=== PATIENT | male | born 1970 | race African-American/Black ===

== ENCOUNTER 2018-02-20 12:27 | Emergency (ER) | payer OTHER ==
[~2018-02-20] VITALS: Ht 170.2 cm; Wt 81.6 kg
[2018-02-20] MEDS ORDERED: IV NORMAL SALINE 1,000ML 1,000 ML IV ONE (13:00)
[2018-02-20 13:05] LABS: BASO % 1 % (0-3); EOS % 1 % (0-3); HEMATOCRIT 39.4 % (39.0-53.0); HEMOGLOBIN 13.9 g/dL (13.0-17.5); LYMPH % 25 % (24-48); MEAN CORPUSCULAR HEMOGLOBIN 30 pg (25-35); MEAN CORPUSCULAR HGB CONC 35 g/dL (31-37); MEAN CORPUSCULAR VOLUME 85 fL (79-100); MONO # 0.5 x10^3/uL (0.0-1.1); MONO % 12 % (0-9); NEUT # 2.4 x10^3uL (1.8-7.7); NEUT % 61 % (31-73); PLATELET COUNT 285 x10^3/uL (140-400); RED BLOOD COUNT 4.63 x10^6/uL (4.30-5.70); RED CELL DISTRIBUTION WIDTH 11.9 % (11.5-14.5); WHITE BLOOD COUNT 3.9 x10^3/uL (4.0-11.0)
--- NOTE | 2018-02-20 13:12 | PHYS DOC ---
Adult General Chief Complaint Chief Complaint: BACK INJURY HPI HPI 47-year-old male with a history of diabetes presents with several day history of productive cough. He's had yellow sputum. He also states he has had some body aches and sweats. He has been working out in the heat and feels as if he may be dehydrated. He is also out of his diabetic medication. He denies any hemoptysis.[] Review of Systems Review of Systems Constitutional: Denies fever or chills [] Eyes: Denies change in visual acuity, redness, or eye pain [] HENT: Denies nasal congestion or sore throat [] Respiratory: Denies cough or shortness of breath [] Cardiovascular: No additional information not addressed in HPI [] GI: Denies abdominal pain, nausea, vomiting, bloody stools or diarrhea [] : Denies dysuria or hematuria [] Musculoskeletal: Denies back pain or joint pain [] Integument: Denies rash or skin lesions [] Neurologic: Denies headache, focal weakness or sensory changes [] Endocrine: Denies polyuria or polydipsia [] All other systems were reviewed and found to be within normal limits, except as documented in this note. Current Medications Current Medications Current Medications Medications (Trade) Dose Ordered Sig/Jonathan Start Time Stop Time Status Last Admin Dose Admin Ketorolac Tromethamine (Toradol) 30 mg 1X ONCE 02/20/18 13:15 02/20/18 13:16 Sodium Chloride 1,000 ml @ 1,000 mls/hr 1X ONCE 02/20/18 13:00 02/20/18 13:59 Allergies Allergies Allergies Coded Allergies Type Severity Reaction Last Updated Verified aspirin Allergy Intermediate gi problems 02/20/18 Yes Physical Exam Physical Exam Constitutional: Well developed, well nourished, no acute distress, non-toxic appearance. [] HENT: Normocephalic, atraumatic, bilateral external ears normal, oropharynx moist, no oral exudates, nose normal. [] Eyes: PERRLA, EOMI, conjunctiva normal, no discharge. [] Neck: Normal range of motion, no tenderness, supple, no stridor. [] Cardiovascular:Heart rate regular rhythm, no murmur [] Lungs & Thorax: Bilateral breath sounds clear to auscultation [] Abdomen: Bowel sounds normal, soft, no tenderness, no masses, no pulsatile masses. [] Skin: Warm, dry, no erythema, no rash. [] Back: No tenderness, no CVA tenderness. [] Extremities: No tenderness, no cyanosis, no clubbing, ROM intact, no edema. [] Neurologic: Alert and oriented X 3, normal motor function, normal sensory function, no focal deficits noted. [] Psychologic: Affect normal, judgement normal, mood normal. [] Current Patient Data Lab Results Laboratory Tests Test 02/20/18 12:54 White Blood Count 3.9 x10^3/uL (4.0-11.0) L Red Blood Count 4.63 x10^6/uL (4.30-5.70) Hemoglobin 13.9 g/dL (13.0-17.5) Hematocrit 39.4 % (39.0-53.0) Mean Corpuscular Volume 85 fL (79-100) Mean Corpuscular Hemoglobin 30 pg (25-35) Mean Corpuscular Hemoglobin Concent 35 g/dL (31-37) Red Cell Distribution Width 11.9 % (11.5-14.5) Platelet Count 285 x10^3/uL (140-400) Neutrophils (%) (Auto) 61 % (31-73) Lymphocytes (%) (Auto) 25 % (24-48) Monocytes (%) (Auto) 12 % (0-9) H Eosinophils (%) (Auto) 1 % (0-3) Basophils (%) (Auto) 1 % (0-3) Neutrophils # (Auto) 2.4 x10^3uL (1.8-7.7) Lymphocytes # (Auto) 1.0 x10^3/uL (1.0-4.8) Monocytes # (Auto) 0.5 x10^3/uL (0.0-1.1) Eosinophils # (Auto) 0.0 x10^3/uL (0.0-0.7) Basophils # (Auto) 0.0 x10^3/uL (0.0-0.2) EKG EKG EKG: Sinus rhythm right bundle branch block rate of 86[] Radiology/Procedures Radiology/Procedures [] Impressions: Chest x-ray: Negative exam as interpreted by me Course & Med Decision Making Course & Med Decision Making Pertinent Labs and Imaging studies reviewed. (See chart for details) [ED course: Evaluation reveals a 47-year-old male who is medically noncompliant. He states he's not been taking his insulin or any other medications for that matter. I informed him that he had several abnormal laboratory studies including a low sodium and an elevated creatinine indicating that he was having complications related to his diabetes. I informed the patient that he would need to follow closely with primary care physician in the very near future to take better care of himself. I offered him admission today to the hospital he refused. I will prescribe him his Lantus.] Dragon Disclaimer Dragon Disclaimer This electronic medical record was generated, in whole or in part, using a voice recognition dictation system. Departure Departure: Impression: Primary Impression: Bronchitis Additional Impressions: Back pain Hyponatremia Hyperglycemia Renal insufficiency Referrals: PCP,MARTA (PCP) MANSI CHAVEZ MD Patient Instructions: 2400 Calorie Diet for Diabetes Meal Planning, Back Pain, Adult, Bronchitis, Diabetes and Small Vessel Disease, Diabetes, FAQs, Hyponatremia, Kidney Failure, [id number] Additional Instructions: It is extremely important that he follow up with Dr. Chavez in the next 2-3 days. Take medication as directed. Scripts Azithromycin (AZITHROMYCIN TABLET) 250 Mg Tablet 1 PKG PO UD for bronchitis, #6 TAB Take 2 tablets today and then one tablet every day thereafter for the next 4 days Prov: DANIELLE SALES DO 02/20/18 Insulin Glargine,Hum.rec.anlog (LANTUS SOLOSTAR) 100 Unit/1 Ml Insuln.pen 20 UNIT SQ QHS, #30 ML 5 Refills Prov: DANIELLE SALES DO 02/20/18 Problem Qualifiers DANIELLE SALES DO Feb 20, 2018 13:12
[2018-02-20] MEDS ORDERED: KETOROLAC 30 MG/ML VIAL. IV ONE (13:15)
[2018-02-20 13:24] LABS: ALBUMIN 3.3 g/dL (3.4-5.0); ALBUMIN/GLOBULIN RATIO 0.8 (1.0-1.7); CALCIUM 8.5 mg/dL (8.5-10.1); CREATININE 2.5 mg/dL (0.7-1.3); POTASSIUM 4.2 mmol/L (3.5-5.1); TOTAL BILIRUBIN 0.4 mg/dL (0.2-1.0); TOTAL PROTEIN 7.4 g/dL (6.4-8.2)
[2018-02-20 13:29] VITALS: BP 101/60
--- NOTE | 2018-02-20 13:41 | RAD ---
Portable chest, 02/20/2018: HISTORY: Cough The heart size is normal. There appears to be a tiny granuloma in the left upper lobe. No acute infiltrate is seen. There is no evidence of pleural fluid. IMPRESSION: No acute cardiopulmonary abnormality is detected. Electronically signed by: Keith Monge MD (02/20/2018 1:37 PM) [facility]
[2018-02-20] MEDS ORDERED: INSU100I13 SQ (13:42)
[2018-02-20] MEDS ORDERED: AZIT250T6 PO (13:42)
--- NOTE | 2018-02-20 16:54 | EKG ---
[address] [address] Test Date: 2018-02-20 Test Time: 13:12:19 Pat Name: NOE THAKUR Department: Room: Gender: M Anodiser: GERTRUDIS : 1970 Requested By: DANIELLE SALES Order Number: [id number] Reading MD: Measurements Intervals [place] Rate: 86 P: 51 NM: 154 QRS: 18 QRSD: 124 T: 36 QT: 374 QTc: 451 Interpretive Statements SINUS RHYTHM RIGHT BUNDLE BRANCH BLOCK RVH WITH REPOLARIZATION ABNORMALITY ABNORMAL ECG RI6.01 No previous ECG available for comparison
== END 2018-02-20 13:49 | disposition home or self-care (01) ==
LOC: ER 12:27
DX: J40 Bronchitis, not specified as acute or chronic (principal); E11.65 Type 2 diabetes mellitus with hyperglycemia; E87.1 Hypo-osmolality and hyponatremia; N28.9 Disorder of kidney and ureter, unspecified; M54.9 Dorsalgia, unspecified; Z88.6 Allergy status to analgesic agent
CPT/HCPCS: 36415; 71045; 80053; 85025; 93005; 96374; 99285; J1885; J7030